=== PATIENT | male | born 1935 | race Caucasian/White ===

== ENCOUNTER 2017-02-24 18:27 | Emergency (ER) | payer OTHER ==
[2017-02-24 18:32] VITALS: BP 150/90; PULSE 78; TEMP 97.7; BMI 33.5
--- NOTE | 2017-02-24 18:55 | PDOC ---
History of Present Illness - General Chief Complaint: Injury Stated Complaint: FALL/INJURY/ HEAD LACERATION Time Seen by Provider: 02/24/17 18:54 History Source: Patient Exam Limitations: No Limitations - History of Present Illness Initial Comments: CHIEF COMPLAINT: 81 y/o male BIB son for head laceration. HISTORY OF PRESENT ILLNESS: According to the son the patient was bent down playing with his grand daughter when she knocked into him and he fell backwards , hitting the back of his head on the corner of a door. He denies LOC, LUND, neck pain, dizziness, bleeding from ears or nose, seizures, n/v/d, CP, SOB, abnormal behavior, changes in vision/hearing. The patient is not on a blood thinner. Vital signs on arrival are within normal limits. REVIEW OF SYSTEMS: GENERAL/CONSTITUTIONAL: No fever/chills. No weakness. No weight change. HEAD, EYES, EARS, NOSE AND THROAT: No change in vision. No ear pain or discharge. No sore throat. CARDIOVASCULAR: No chest pain or shortness of breath. RESPIRATORY: No cough, wheezing, or hemoptysis. GASTROINTESTINAL: No abd pain, nausea, vomiting, diarrhea. GENITOURINARY: No dysuria, frequency, or change in urination. MUSCULOSKELETAL: No joint or muscle swelling or pain. No neck or back pain. SKIN: No rash or easy bruising. NEUROLOGIC: No headache, vertigo, loss of consciousness, or loss of sensation. PHYSICAL EXAM: GENERAL: The patient is awake, alert, and fully oriented, in no acute distress. He is well appearing and talkative. HEAD: 5cm vertical linear laceration of left occipital region with minimal bleeding. Very well approximated margins. NECK: No midline cervical spine TTP or step offs. ENT: Pupils equal, round and reactive to light, extraocular movements intact, sclera anicteric, conjunctiva clear. LUNGS: Clear to auscultation bilaterally. Normal excursion. No respiratory distress or use of accessory muscles. CV: RRR, S1/S2, no MRG. Cap refill < 2 sec. ABDOMEN: Soft, non-distended, non-tender even to deep palpation, no hepatomegaly or splenomegaly, no masses. EXTREMITIES: Normal range of motion, no edema. NEUROLOGICAL: Normal speech, normal gait. CN II-XII grossly intact. PSYCH: Normal mood, normal affect. SKIN: Warm, dry, normal turgor, no rashes or lesions noted. Past History - Past Medical History Allergies/Adverse Reactions: Allergies Allergy/AdvReac Type Severity Reaction Status Date / Time No Known Allergies Allergy Verified 02/24/17 18:32 Home Medications: Ambulatory Orders Escitalopram Oxalate [Lexapro] 10 mg PO DAILY 01/31/12 Pravastatin Sodium [Pravachol (Nf)] 20 mg PO HS 01/31/12 Tamsulosin HCl [Flomax] 0.4 mg PO DAILY 01/31/12 Losartan/Hydrochlorothiazide [Losartan-Hctz 50-12.5 mg Tab] 1 each PO DAILY #10 tablet 07/18/12 Naproxen Sodium [Naproxen Sodium Cr] 500 mg PO BID 12/17/15 Azithromycin [Zithromax Tri-Amauri (3 DAYS) -] 500 mg PO DAILY #3 tablet 12/22/15 Multivitamin [Poly-Vitamin] 1 each PO DAILY #90 tab.chew 12/22/15 Famotidine [Pepcid] 20 mg PO DAILY #7 tablet 08/28/16 Mag Hydrox/Al Hydrox/Simeth [Mylanta Suspension -] 30 ml PO Q6H #1 bottle Cardiac Disorders: Yes HTN: Yes Hypercholesterolemia: Yes - Surgical History Orthopedic Surgery: Yes (LT ANKLE) - Immunization History Immunization Up to Date: Yes - Psycho/Social/Smoking Cessation Hx Anxiety: No Suicidal Ideation: No Smoking Status: Yes Smoking History: Never smoked Number of Cigarettes Smoked Daily: 0 Information on smoking cessation initiated: No Hx Alcohol Use: No Drug/Substance Use Hx: No Substance Use Type: None Hx Substance Use Treatment: No *Physical Exam - Vital Signs Last Vital Signs Temp Pulse Resp BP Pulse Ox 97.7 F 78 18 150/90 98 02/24/17 18:30 02/24/17 18:30 02/24/17 18:30 02/24/17 18:30 02/24/17 18:30 Procedures - Laceration/Wound Repair Left Posterior Head Wound Length: 2.6 to 5.0 cm Wound's Depth, Shape: superficial, linear Irrigated w/ Saline: Yes Betadine Prep: (cleaned with hydrogen peroxide) Wound Repaired With: Pierson Number of Sutures: 5 Medical Decision Making - Medical Decision Making A/P: 81 y/o male with laceration to posterior scalp. plan is as follows: 1. Tetanus 2. Lac repair with chris. The patient tolerated the stapling well. Informed him he would have to return in 5 days to have chris removed. Informed him and his son that he would have to return to the ER if he experienced any worsening of symptoms, such as LUND, dizziness, changes in vision/ hearing, vomiting, seizures, abnormal behavior. The patient verbalizes understanding of all instructions, has no further questions and is awaiting discharge. *DC/Admit/Observation/Transfer Diagnosis at time of Disposition: Head injury Qualifiers: Encounter type: initial encounter Qualified Code(s): S09.90XA - Unspecified injury of head, initial encounter Laceration of head Qualifiers: Encounter type: initial encounter Location of open wound of head: scalp Foreign body presence: without foreign body Qualified Code(s): S01.01XA - Laceration without foreign body of scalp, initial encounter - Discharge Dispostion Disposition: HOME Condition at time of disposition: Improved - Referrals Referrals: STAFF,NOT ON [Primary Care Provider] - - Patient Instructions Printed Discharge Instructions: DI for Closed Head Injury, DI for Laceration Repair -- Chris Additional Instructions: Discharge Instructions: -You were given a tetanus shot today; you are now vaccinated for 10 years. -Keep wound clean and dry -Return to the ER in 5 days to have chris removed.
[2017-02-24] MEDS ORDERED: TETANUS AND DIPHTHERIA TOXOID 0.5 ML DISP.SYRIN IM ONE (19:06)
== END 2017-02-24 19:15 | disposition home or self-care (01) ==
LOC: JERFT 18:27
PROC: 0HQ0XZZ Repair Scalp Skin, External Approach (ICD-10-PCS; principal; 2017-02-24)
PROC: 3E0234Z Introduction of Serum, Toxoid and Vaccine into Muscle, Percutaneous Approach (ICD-10-PCS; 2017-02-24)
DX: S01.01XA Laceration without foreign body of scalp, initial encounter (principal); W18.39XA Other fall on same level, initial encounter; E78.00 Pure hypercholesterolemia, unspecified; Y93.89 Activity, other specified; Y92.009 Unspecified place in unspecified non-institutional (private) residence as the place of occurrence of the external cause; I10 Essential (primary) hypertension; I51.9 Heart disease, unspecified
CPT/HCPCS: 99281-25

== ENCOUNTER 2017-03-02 16:54 | Emergency (ER) | payer OTHER ==
[2017-03-02 16:57] VITALS: BP 124/70; PULSE 87; TEMP 97.8; BMI 33.5
--- NOTE | 2017-03-02 17:00 | PDOC ---
Suture Removal/Wound Check HPI - History of Present Illness Chief Complaint: Suture/Staple Removal(Here) Stated Complaint: STITCHES REMOVAL Time Seen by Provider: 03/02/17 17:00 History Source: Yes: Patient, Family Exam Limitations: Yes: No Limitations Treated at: [facility] ED - Previous ED Treatment Type of procedure performed on last visit: Yes: Laceration Repair Tetanus Immunization: Yes: Given at last ED visit Antibiotics Prescribed: No Past History - Travel Traveled outside of the country in the last 30 days: No Close contact w/someone who was outside of country & ill: No - Past Medical History Allergies/Adverse Reactions: Allergies No Known Allergies Allergy (Verified 03/02/17 16:57) Home Medications: Ambulatory Orders Escitalopram Oxalate [Lexapro] 10 mg PO DAILY 01/31/12 Pravastatin Sodium [Pravachol (Nf)] 20 mg PO HS 01/31/12 Tamsulosin HCl [Flomax] 0.4 mg PO DAILY 01/31/12 Losartan/Hydrochlorothiazide [Losartan-Hctz 50-12.5 mg Tab] 1 each PO DAILY #10 tablet 07/18/12 Naproxen Sodium [Naproxen Sodium Cr] 500 mg PO BID 12/17/15 Multivitamin [Poly-Vitamin] 1 each PO DAILY #90 tab.chew 12/22/15 Famotidine [Pepcid] 20 mg PO DAILY #7 tablet 08/28/16 Mag Hydrox/Al Hydrox/Simeth [Mylanta Suspension -] 30 ml PO Q6H #1 bottle Surgical History: Yes: Noncontributory (foot) - Immunization History Immunizations Up to Date: Yes Tetanus Status: Less than 5 years - Social History Smoking History: Yes Smoking Status: Never smoked Number of Ciarettes Per Day: 0 Alcohol Use: occasionally Drug Use: none Suture Removal/Wound Check PE - Physical Exam Laceration/Wound Check Symptoms: reports: Improved, Other Comment (Scabbing around the chris). denies: Pain, Fever, Chills, Redness, Bleeding Comments: 03/02/17 18:05 Wound is well approximated and healed at this time. Will remove 5 chris at this time. Current Severity Level: None Location of Laceration/Wound: left: Head (occipital head with 5 chris) *Review of Systems - Review of Systems Constitutional: No: Chills, Fever, Weakness Integumentary: No: Erythema, Pruritus, Rash Medical Decision Making - Medical Decision Making 03/02/17 17:17 Area was cleansed with betadine prior to removal of chris. Hydrogen peroxide was used to dissolve some scabbing. 5 chris were removed from the L occipital head with no complications. Pt. tolerated procedure well. Wound remains closed and well approximated. Will discharge home at this time. Pt. understands all discharge instructions and all questions were answered at this time. *DC/Admit/Observation/Transfer Diagnosis at time of Disposition: Encounter for staple removal - Discharge Dispostion Disposition: HOME Condition at time of disposition: Stable Admit: No - Patient Instructions Printed Discharge Instructions: DI for Suture Removal Additional Instructions: You had your chris removed today. There is a scab over the area. You may use hydrogen peroxide if you would like to remove the scab. You may gently wash your hair tomorrow. Continue to look for signs of infection. You may use Tylenol or Motrin as needed for pain. Return to the ED if you have redness around the area, fevers, chills, or purulent drainage, or any changes in your symptoms. Print Language: CITIZEN OF [place]
== END 2017-03-02 18:03 | disposition home or self-care (01) ==
LOC: JERFT 16:54
DX: Z48.02 Encounter for removal of sutures (principal)
CPT/HCPCS: 99281-25